=== PATIENT | female | born 1990 | race Two or more races ===

== ENCOUNTER 2024-08-20 08:25 | Outpatient (CLI) | payer OTHER | END 2024-08-20 08:37 | disposition home or self-care (01) | LOC: TOM 08:25 | PROVIDERS: ATTEND Obstetrics & Gynecology Reproductive Endocrinology | DX: N93.0 Postcoital and contact bleeding (principal) ==

== ENCOUNTER → 2025-09-01 | Emergency (ER) | payer OTHER ==
[~2025-09-01] VITALS: Ht 167.6 cm; Wt 75.3 kg
[~2025-09-01] MED LIST: METOCLOPRAMIDE HCL 5 MG/ML VIAL IM ONE; RINGERS SOLUTION,LACTATED 1,000 ML IV ONE
[2025-09-01 14:33] VITALS: BP 128/81; O2SAT 100
[2025-09-01 16:28] LABS: BASO % 0.6 % (0.1-1.2); EOS # 0.05 (0.04-0.54); EOS % 0.4 % (0.7-7.0); LYMPH # 2.74 (1.18-3.74); LYMPH % 21.8 % (19.3-53.1); MEAN PLATELET VOLUME 9.10 fl (9.4-12.4); MONO # 0.93 (0.24-0.82); MONO % 7.4 % (4.7-12.5); NEUT # 8.70 (1.56-6.13); NEUT % 69.2 % (34.0-71.1); RED CELL DISTRIBUTION WIDTH 13.0 % (11.6-14.4)
[2025-09-01 16:49] LABS: INR 1.04
[2025-09-01 16:58] LABS: URINE APPEARANCE Clear; URINE BILIRRUBIN Negative (NEGATIVE); URINE BLOOD Negative; URINE COLOR Dark Yellow; URINE GLUCOSE Negative (NEGATIVE); URINE LEUKOCYTE Negative; URINE NITRATE Negative; URINE PROTEIN 30 (NEGATIVE); URINE UROBILINOGEN 1.0 E.U./dl
[2025-09-01 17:03] LABS: URINE EPITHELIAL CELLS 32.4 uL (0.0-38.8); URINE RBC 45.1 uL (0.0-20.8); URINE WBC 23.0 uL (0.0-23.2)
[2025-09-01 17:07] LABS: ALT/SGPT 43.0 U/L (12-78); AST/SGOT 14.0 U/L (15-37); BILIRUBIN TOTAL 0.55 mg/dL (0.3-1.2); BUN CREA RATIO 9.0 (7.0-25.0); CREATININE SERUM 0.68 mg/dL (0.55-1.02); GFR 99.04; GLOBULINA 4.1 G/DL (2.4-3.5); GLUCOSE FASTING 84.0 mg/dL (65-100); OSMOLALITY SERUM 267.0 MOSM/KG (275-295)
[2025-09-01 17:14] LABS: URINE CAST 1.17 uL (0.0-1.40); URINE KETONE >=160 (NEGATIVE)
== END | disposition home or self-care (01) ==
LOC: ER 14:00
PROVIDERS: General Practice
DX: O21.0 Mild hyperemesis gravidarum (principal); Z3A.09 9 weeks gestation of pregnancy